=== PATIENT | male | born 1995 | race Hispanic/Latino ===

== ENCOUNTER 2022-08-28 12:53 | Emergency (ER) | payer OTHER ==
[2022-08-28] MEDS ORDERED: 0.9%NACL 1000ML 1,000 ML IV ONE ×2 (13:30→14:30)
[2022-08-28] MEDS ORDERED: ONDANSETRON 4MG INJ IVP ONE (13:30)
[2022-08-28] MEDS ORDERED: MORPHINE 4 MG SYG IVP ONE (13:30)
[2022-08-28 13:40] LABS: BASOPHILS % (AUTO) 0.2 % (0.0-5.0); HEMATOCRIT 46.3 % (42-54); LYMPHOCYTES % (AUTO) 5.9 % (21.0-51.0); MEAN CORPUSCULAR HEMOGLOBIN 32.5 pg (27.0-33.0); MONOCYTES % (AUTO) 4.7 % (3.0-13.0); NEUTROPHILS % (AUTO) 88.5 % (40.0-77.0); PLATELET COUNT (AUTO) 218 K/uL (130-400); RED BLOOD CELL COUNT(AUTO) 4.98 MIL/uL (4.50-6.20); RED CELL DISTRIBUTION WIDTH 11.4 % (11.0-15.5); WHITE BLOOD COUNT (AUTO) 17.4 K/uL (4.8-10.8)
[2022-08-28 13:44] LABS: APPEARANCE,URINE CLEAR (CLEAR); BILIRUBIN,URINE NEGATIVE (NEGATIVE); COLOR,URINE YELLOW (YELLOW); GLUCOSE, URINE (UA) NEGATIVE (NEGATIVE); KETONES,URINE >=80 mg/dL (NEGATIVE); LEUKOCYTE ESTERASE ,URINE NEGATIVE Leu/uL (NEGATIVE); NITRATE,URINE NEGATIVE (NEGATIVE); OCCULT BLOOD,URINE NEGATIVE (NEGATIVE); PROTEIN,URINE 50 mg/dL (NEGATIVE); UROBILINOGEN,URINE 0.2 mg/dL (0.2-1.0)
[2022-08-28 13:56] LABS: CREATINE KINASE, TOTAL 75 U/L (21-232)
[2022-08-28 13:57] LABS: LIPASE < 50 U/L (114-286)
[2022-08-28 14:01] LABS: ALANINE AMINOTRANSFERASE 81 U/L (12-78); ASPARTATE AMINOTRANSFERASE 30 U/L (10-37); CARBON DIOXIDE 29 mmol/L (21-32); CHLORIDE 98 mmol/L (101-111); CREATININE 0.9 mg/dL (0.5-1.5); GLOMERULAR FILTR. RATE CALC 121 mL/min (>90); GLUCOSE,RANDOM 99 mg/dL (70-105); SODIUM SERUM 134 mmol/L (136-145); TOTAL PROTEIN, SERUM 7.8 g/dL (6.0-8.3); UREA NITROGEN, BLOOD 12 mg/dL (7-18)
[2022-08-28 14:03] LABS: LIPASE < 50 U/L (114-286); POTASSIUM 2.9 mmol/L (3.5-5.1)
[2022-08-28 14:09] LABS: BACTERIA,URINE FEW /HPF (None Seen); MUCUS,URINE MOD LPF (None Seen); SQUAMOUS EPITHELIAL CELL,UR RARE /HPF (0-2); WBC,URINE 0-1 /HPF (0-1)
[2022-08-28] MEDS ORDERED: POTASSIUM CHLORIDE 20 MEQ/100 ML BAG IV ONE (14:30)
[2022-08-28] MEDS ORDERED: POTASSIUM BICARB/CIT AC 25 MEQ TABLET.EFF PO ONE (16:30)
[2022-08-28] MEDS ORDERED: ONDA4TAB10 PO (17:04)
[2022-08-28] MEDS ORDERED: DIPH1TAB PO (17:04)
[2022-08-28 17:40] VITALS: BP 136/78
== END 2022-08-28 17:41 | disposition home or self-care (01) ==
LOC: EDH 12:53
DX: K52.9 Noninfective gastroenteritis and colitis, unspecified (principal); E87.6 Hypokalemia; E86.0 Dehydration; R11.2 Nausea with vomiting, unspecified; Z20.822 Contact with and (suspected) exposure to COVID-19
CPT/HCPCS: 99284; 96365; 96366; 96375; 87635; 96361; 82550; 80053; 83690 ×2; 85025; 81001; 36415; C9803; J2405; J2270; J3480

== ENCOUNTER 2024-04-11 13:12 | Emergency (ER) | payer SELFPAY ==
[~2024-04-11] VITALS: Ht 165.1 cm; Wt 68.0 kg
[~2024-04-11 13:12] MED LIST: DIPH1TAB PO; ONDA-243 PO
[2024-04-11 13:56] VITALS: BP 126/62; PULSE 63; RESP 20; TEMP 98.5
[2024-04-11] MEDS ORDERED: AMOX1TAB16 PO (13:59)
--- NOTE | 2024-04-11 14:00 | ERN ---
General Chief Complaint: Insect Bite Stated Complaint: SPIDER BITE ON NECK Time Seen by MD: 13:13 History of Present Illness Initial Comments 28-year-old male presents for a draining abscess to the back in his right neck. He reports been present for a couple of weeks. It was enlarging inside and it finally opened up. There is some purulent drainage. No systemic signs or symptoms. No medical conditions. Allergies: Coded Allergies: No Known Drug Allergies (Unverified Allergy, Unknown, 08/28/22) Home Meds Active Scripts Diphenoxylate HCl/Atropine (Lomotil Tablet) 1 Each Tablet, 2 TAB PO Q12H PRN for DIARRHEA for 5 Days, #10 TAB 0 Refills Prov:SEB MCCALL MD 08/28/22 Ondansetron (Ondansetron Odt) 4 Mg Tab.rapdis, 4 MG PO TID PRN for NAUSEA, #30 TAB 0 Refills Prov:SEB MCCALL MD 08/28/22 ROS Dictation CONSTITUTIONAL: No chills, no fever, no weakness, no diaphoresis, no malaise. HEAD/FACE: No signs of trauma. EENT: No eye pain, no blurred vision, no tearing, no double vision, no ear pain, no ear discharge, no nose pain, no nasal congestion, no throat pain, no throat swelling, no mouth pain. RESPIRATORY: No cough, no orthopnea, no SOB, no stridor, no wheezing. CARDIOVASCULAR: No chest pain, no edema, no palpitations, no syncope. GASTROINTESTINAL/ABDOMINAL: No abdominal pain, no constipation, no diarrhea, no nausea, no vomiting. GENITOURINARY: No abnormal discharge, no dysuria, no frequent urination, no hematuria. No complaints of pain in the genitals. MUSCULOSKELETAL: No back pain, no gout, no joint pain, no joint swelling, no muscle pain, no muscle stiffness, no neck pain. INTEGUMENTARY: No change in color, no change in hair/nails, no dryness, no lesion, no lumps, no rash. NEUROLOGICAL/PSYCH: No anxiety, not depressed, no emotional problem, no headache, no numbness, no pre-existing deficit, no history of seizures, no tremors, no weakness. HEMATOLOGIC/LYMPHATIC: Not anemic, no history of blood clots, no apparent bleeding, no bruising, glands not swollen. All Systems Negative, Except as Noted. Physical Exam Physical Exam Dictation VITAL SIGNS: Reviewed. GENERAL APPEARANCE: Alert, oriented x3, no acute distress HEAD AND FACE: Non-traumatic. EYES: PERRL, pink conjunctivas, eyelid no trauma, anterior chamber clear. EARS: Pinnas intact and no signs of trauma or erythema. Ear canals clear and no discharge. TMs no erythema. NOSE: No discharge, no bleeding. OROPHARYNX: Mouth normal, teeth no caries, tongue pink. Pharynx clear, no erythema. Tonsils no exudates, no abscesses noted. Mucous membrane moist. NECK: Supple, non-tender, no thyromegaly, no masses, no JVD, no bruits. BREAST: Deferred. CHEST: No tenderness, no crepitus, no paradoxical movement, no retractions. LUNGS: Clear, well-ventilated, symmetric, no rales, no wheezing, no rhonchi, no stridor, good breath sounds bilaterally. HEART: Regular rate, regular rhythm, no murmur, no gallops. VASCULAR: No peripheral edema. ABDOMEN: Soft, positive bowel sounds, nondistended, no guarding, nontender, no rebound, no masses no hepatomegaly, no splenomegaly, no Ovalles's sign, no hernias. RECTAL: Deferred. GENITAL: Deferred. NEUROLOGICAL: Normal speech, gross motor function intact, gross sensory function intact. MUSCULOSKELETAL: Neck nontender, full range of motion, back nontender, full range of motion. EXTREMITIES: Nontender, full range of motion. SKIN: Color pink, dry, no turgor, no rash, no lacerations, no abrasions, no contusions. LYMPHATICS: Deferred. MDM CC: Right neck abscess Historian: Patient Comorbidities: None Limitations by social determinants of health: Uninsured. Vitals are stable No labs or imaging indicated He was a small abscess on the back of his neck, proximally 1 cm in diameter. It does appear to be draining. There is no systemic signs or symptoms There is no abscess that needs draining in his time. He was not meet SIRS or sepsis criteria. He is nontoxic in appearance. We will DC with antibiotics recommend primary care follow up. DX & DISP Disposition: Discharge Departure Impression: Primary Impression: Neck abscess Condition: Stable Assign Patient to: You have an abscess on the back of your neck. It appears to be draining. As we discussed, apply frequent warm compresses. I have prescribed Augmentin, which is an antibiotic. Please take this twice per day. Keep the wound clean with soap and water. Then keep it covered with a Band-Aid. Please follow up with the primary doctor next week for re-evaluation. Scripts Amoxicillin/Potassium Clav (Amox Tr-K Clv 875-125 mg Tab) 875 Mg-125 Mg Tablet 1 TAB PO BID for 10 Days, #20 TAB 0 Refills Prov: MICHELLE ALEGRIA DO 04/11/24 Referrals: NONE (PCP) MICHELLE ALEGRIA DO Apr 11, 2024 14:00
== END 2024-04-11 14:25 | disposition home or self-care (01) ==
LOC: EDH 13:12
DX: L02.11 Cutaneous abscess of neck (principal); Z79.899 Other long term (current) drug therapy
CPT/HCPCS: 99283; 99285

== ENCOUNTER 2024-12-27 18:39 | Emergency (ER) | payer OTHER ==
[~2024-12-27] VITALS: Ht 165.1 cm; Wt 81.6 kg
[~2024-12-27 18:39] MED LIST changes: +AMOX1TAB16 PO
--- NOTE | 2024-12-27 18:56 | ERN ---
ED Note History of Present Illness Stated Complaint: FEVER Chief Complaint: Fever Time Seen by MD: 18:40 Time Seen by Midlevel: 18:45 Dictation: Justen rodriguez is a 29-year-old male with no reported chronic health issues who presented to the emergency department this evening for evaluation of fever. He reports one week of fever, fatigue, general body weakness, and sore throat. He states today he felt febrile prompting him to come to the hospital. He denies shortness of breath, cough, chest pain, palpitations, edema, abdominal pain, nausea, vomiting, hematemesis, constipation, diarrhea, melena, hematochezia, dysuria, dizziness, or focal weakness/paresthesia. He states he has been taking Tylenol; last dose yesterday evening. Allergies: Coded Allergies: No Known Drug Allergies (Unverified Allergy, Unknown, 08/28/22) Home Meds Active Scripts Amoxicillin/Potassium Clav (Amox Tr-K Clv 875-125 mg Tab) 875 Mg-125 Mg Tablet, 1 TAB PO BID for 10 Days, #20 TAB 0 Refills Prov:MICHELLE ALEGRIA DO 04/11/24 Diphenoxylate HCl/Atropine (Lomotil Tablet) 1 Each Tablet, 2 TAB PO Q12H PRN for DIARRHEA for 5 Days, #10 TAB 0 Refills Prov:SEB MCCALL MD 08/28/22 Ondansetron (Ondansetron Odt) 4 Mg Tab.rapdis, 4 MG PO TID PRN for NAUSEA, #30 TAB 0 Refills Prov:SEB MCCALL MD 08/28/22 Past Medical History Past Medical History: No Pertinent History Surgical History: None PSYCH History: no pertinent psych hx Social History: Negative, Lives with family RN Note Reviewed/Agreed w/PFSH: Yes Review of System Dictation REVIEW OF SYSTEMS: CONSTITUTIONAL: Patient sweats or weight changes. Reports fever, chills, fatigue, and body aches. EYES: Patient denies any visual symptoms. EARS, NOSE, AND THROAT: No difficulties with hearing. No symptoms of rhinitis. Reports sore throat. CARDIOVASCULAR: Patient denies chest pains, palpitations, orthopnea and paroxysmal nocturnal dyspnea. RESPIRATORY: No dyspnea on exertion, no wheezing or cough. GI: No nausea, vomiting, diarrhea, constipation, abdominal pain, hematochezia or melena. : No urinary hesitancy or dribbling. No nocturia or urinary frequency. No abnormal urethral discharge. MUSCULOSKELETAL: Reports body aches. NEUROLOGIC: No chronic headaches, no seizures. Patient denies numbness, tingling or weakness. PSYCHIATRIC: Patient denies problems with mood disturbance. No problems with anxiety. ENDOCRINE: No excessive urination or excessive thirst. DERMATOLOGIC: Patient denies any rashes or skin changes. Initial Vital Sign VS Vital Signs Date Time Temp Pulse Resp B/P (MAP) Pulse Ox O2 Delivery O2 Flow Rate FiO2 12/27/24 18:40 101.3 89 16 122/54 98 Room Air 12/27/24 19:15 0 21 Physical Exam Dictation Vital signs: Reviewed. Fever 101.1 Constitutional: No acute distress. Non-toxic appearing. Pleasant/calm Head/Face: Normocephalic, atraumatic. Eyes: Periorbital areas with no swelling, redness, or edema. Lids and lashes are normal. Conjunctival injection is absent. Sclera anicteric. Pupils equal, round, reactive to light. ENT: Pinnas intact and no signs of trauma or erythema. Ear canals clear and no discharge. TMs no erythema. No nasal discharge or bleeding noted. Oropharynx with bright erythema; no exudates, swelling, masses, exudates, or evidence of obstruction. Uvula midline. Mucous membranes moist. Neck: Trachea midline, no masses palpated, and no cervical lymphadenopathy. No swelling. Supple, full range of motion. Chest/Axilla: No tenderness, no crepitus, no paradoxical movement, no retractions. Cardiovascular: Regular rate, regular rhythm, no murmur, no gallops. Symmetric pulses. No peripheral edema. Normotensive Respiratory: Respirations even and unlabored. Lung sounds clear; no wheezes, rales or rhonchi. Room air SpO2 98% Gastrointestinal: Inspection is normal. No distention is appreciated. Bowel sounds are normal. No mass or organomegaly . There is no tenderness. No rebound. No rigidity. No voluntary or involuntary guarding. No Ovalles's sign. Neurological: Normal speech, gross motor function intact, gross sensory function intact. No focal weakness/Paresthesia. Musculoskeletal/Extremities: All extremities have full range of motion, no pain or tenderness on palpation. Symmetric pulses. Integumentary: Intact. Skin is normal color, warm and dry. Cap refill less than 2 seconds. Results (Laboratory/Radiology) Laboratory/Radiology Laboratory Tests Test 12/27/24 18:43 Influenza Type A Antigen Negative For Type A Influenza Type B Antigen Negative For Type B SARS-CoV-2 Antigen (Rapid) PRESUMPTIVE NEGATIVE Group A Streptococcus Rapid negative (NEGATIVE) Labs Reviewed?: Yes ED Course ED Course Orders Procedure Category Date Status Time Covid19 (Sars Antigen LAB 12/27/24 Complete Rapid) 18:42 Influenza Type A & B, LAB 12/27/24 Complete Rapid 18:42 Rapid (Group A Strep) LAB 12/27/24 Complete 18:42 Acetaminophen 500mg PHA 12/27/24 In Process Tab (Tylenol 500mg T 19:00 Current Medications Medications (Trade) Dose Ordered Sig/Yoshi Route PRN Reason Start Time Stop Time Status Last Admin Dose Admin Acetaminophen (TYLenol 500MG TAB) 1,000 mg ONCE PO 12/27/24 19:00 12/27/24 23:30 12/27/24 19:14 Vital Signs Date Time Temp Pulse Resp B/P (MAP) Pulse Ox O2 Delivery O2 Flow Rate FiO2 12/27/24 19:15 100.6 97 20 121/72 99 Room Air* 0 21 12/27/24 19:14 100.6 12/27/24 18:40 101.3 89 16 122/54 98 Room Air Uneventful ED course. Upon arrival temperature 101.3; no tachycardia. Throat with bright erythema; no exudates. Able to take fluids well. Dose Tylenol 1000 mg was administered; temp decreased. Influenza A/B, COVID and strep all negative. Findings were discussed with patient and all questions were answered. Medical Decision Making MDM MDM: Differential diagnosis: Influenza, strep, COVID Rationale: Tests considered and ordered secondary to shared decision making include: Lab Previous outside records reviewed: Old ER visits. Risk of complication and/or morbidity or mortality of patient management: None Medications-Per medication reconciliation Need for hospitalization: Patient does not meet criteria for hospitalization. Need for emergency major/minor surgery: No There are no social concerns with this patient. Prescription drug management: Ibuprofen, OTC Tylenol Prescriptions will include symptomatic care Patient's prior external medical records from other ER visits were reviewed by me as indicated. Prior testing and results from previous visits were reviewed. Prior tests were taken into account with medical decision making and resource utilization, independent historian/historians were used to obtain complete medical history. I independently interpreted the test that were performed, results were reviewed by me and considered findings on radiology if ordered. Medical management and examination interpretation discussions were had by me with other qualified healthcare professionals as indicated for the patient's care. DX & DISP Disposition: Discharge Departure Impression: Primary Impression: Viral illness Additional Impression: Fever Condition: Stable Additional Instructions: Symptoms are most likely due to a viral infection that is not influenza, COVID, or strep. Viral illness is often cause of fever sore throat cough congestion body aches fatigue, and stomach upset. Antibiotics do not help with viral infections. Rest/get plenty of sleep and take it easy while your body recovers. Increase fluid intake; drink water, tea, clear soups, or electrolyte drinks. Use Tylenol or ibuprofen as needed for fever and body aches. Eat light meals as tolerated. Because you work in the [employer] you should take time off work until your fever free times 24 hours without medicine and symptoms are improving. This helps prevent spreading of illness. Return to the ER or call your doctor if you develop trouble breathing or chest pain, high fever that does not improve with medicine, severe sore throat/inability to swallow fluids, persistent vomiting or dehydration (very little urine, dizziness, very dry mouth), or symptoms worsening after several days instead of improving. Follow up with your primary care physician in 5-7 days if you are not improving. Referrals: SELF,REFERRAL (PCP) Time of Disposition: 20:01 KIMBERLY BURGOS NP Dec 27, 2024 18:56
--- NOTE | 2024-12-27 19:10 | NUR ---
COVID, FLU AND STREP SWABS COLLECTED AND SENT
[2024-12-27 19:29] LABS: RAPID GROUP A STREP negative (NEGATIVE)
[2024-12-27 19:38] LABS: COVID19 (SARS ANTIGEN RAPID) PRESUMPTIVE NEGATIVE (NEGATIVE); INFLUENZA TYPE A Negative For Type A (NEGATIVE); INFLUENZA TYPE B Negative For Type B (NEGATIVE)
[2024-12-27 19:47] VITALS: TEMP 100.1
[2024-12-27 20:24] VITALS: BP 119/63; PULSE 78; RESP 12; TEMP 99.5; O2SAT 99
[2024-12-28] MEDS ORDERED: AZIT250T9 PO (09:41)
== END 2024-12-27 20:27 | disposition home or self-care (01) ==
LOC: EDH 18:39
DX: B34.9 Viral infection, unspecified (principal); Z20.822 Contact with and (suspected) exposure to COVID-19; Z79.899 Other long term (current) drug therapy
CPT/HCPCS: 87426; 87804; 87880; 99283

== ENCOUNTER 2024-12-28 07:16 | Emergency (ER) | payer OTHER ==
[~2024-12-28] VITALS: Ht 165.1 cm; Wt 81.6 kg
--- NOTE | 2024-12-28 08:10 | NUR ---
PATIENT BROUGHT BACK TO FAST TRACK AT THIS TIME AND HAS THICK JACKET PLACED ON SHOULDERS. INFORMED PATIENT TO REMOVE JACKET AT THIS TIME TO STOP THE FEVER FROM INCREASING AND PATIENT COMPLIED WITH INSTRUCTION BUT CONTINUES TO STATE "I'M COLD MA'AM." INFORMED PATIENT THAT THE FEVER NEEDS TO BE LOWERED PRIOR TO PLACING JACKET BACK ON, PATIENT AGREED WITH PLAN OF CARE./HAYLEY
[2024-12-28] MEDS: LIDOCAINE HCL 1% 20 ML VIAL ONE (08:56)
[2024-12-28] MEDS ORDERED: AZIT250T9 PO (09:41)
--- NOTE | 2024-12-28 09:41 | ERN ---
ED Note History of Present Illness Stated Complaint: FEVER AND HEADACHE Chief Complaint: Fever Time Seen by MD: 07:46 Dictation: 29-year-old male with fever cough cold congestion body aches and headache sick for the past few days was seen here yesterday given Tylenol but not improving. No chest pain or shortness of breath no abdominal pain Allergies: Coded Allergies: No Known Drug Allergies (Unverified Allergy, Unknown, 08/28/22) Home Meds Active Scripts Amoxicillin/Potassium Clav (Amox Tr-K Clv 875-125 mg Tab) 875 Mg-125 Mg Tablet, 1 TAB PO BID for 10 Days, #20 TAB 0 Refills Prov:MICHELLE ALEGRIA DO 04/11/24 Diphenoxylate HCl/Atropine (Lomotil Tablet) 1 Each Tablet, 2 TAB PO Q12H PRN for DIARRHEA for 5 Days, #10 TAB 0 Refills Prov:SEB MCCALL MD 08/28/22 Ondansetron (Ondansetron Odt) 4 Mg Tab.rapdis, 4 MG PO TID PRN for NAUSEA, #30 TAB 0 Refills Prov:ESB MCCALL MD 08/28/22 Past Medical History Past Medical History: No Pertinent History Surgical History: None Social History: Negative, Lives with family Review of System Dictation Constitutional: Per HPI Eyes: Negative for injury, pain,redness, and discharge ENT: Per HPI Cardiovascular: Negative for chest pain, palpitations, and edema Respiratory: Per HPI Abdomen/GI: Negative for abdominal pain, nausea, vomiting, diarrhea, and constipation Back: Negative for injury and pain : Negative for injury, bleeding and discharge MS/Extremity: Negative for injury and deformity Skin: Negative for rash, and discoloration Neuro: Negative for headache, weakness, numbness, tingling, and seizure Psych: Negative for suicide ideation, homicidal ideation, and hallucinations Initial Vital Sign VS Vital Signs Date Time Temp Pulse Resp B/P (MAP) Pulse Ox O2 Delivery O2 Flow Rate FiO2 12/28/24 07:23 102.4 72 19 117/59 99 Room Air 0 Physical Exam Dictation General: awake, alert, NAD Head/Face: Normocephalic, atraumatic Eyes: PERRL, EOMI, vision at baseline ENT: oral cavity clear, TMs clear, no signs of infection Neck: Trachea midline, supple, no nuchal rigidity Cardiovascular: RRR, normal S1/S2, No MRGs, no JVD Respiratory: CTAB, no respiratory distress, No rales or wheezes Abdomen: Soft, non-tender, non-distended, normal bowel sounds, no guarding or rebound. Skin: Warm, dry, normal turgor, no rash MS/Extremity: Pulses equal, no cyanosis, neurovascular intact, FROM Neuro: COAx4, GCS 15, strength 5/5, CN 2-12 intact, normal cerebellar exam, normal gait, Psych: Normal behavior, mood, and affect normal Results (Laboratory/Radiology) Labs Reviewed?: Yes ED Course ED Course Orders Procedure Category Date Status Time Covid19 (Sars Antigen LAB 12/28/24 Logged Rapid) 07:50 Rapid (Group A Strep) LAB 12/28/24 Logged 07:50 Acetaminophen 500mg PHA 12/28/24 Complete Tab (Tylenol 500mg T 09:00 Ceftriaxone 1g Vial PHA 12/28/24 Complete (Rocephine 1g Inj) 09:00 Ketorolac 60mg/2ml PHA 12/28/24 Complete (Toradol 60mg/2ml) 09:00 Lidocaine Hcl 1% 20ml PHA 12/28/24 Complete Vial (Lidocaine Hc 08:52 Current Medications Medications (Trade) Dose Ordered Sig/Yoshi Route PRN Reason Start Time Stop Time Status Last Admin Dose Admin Acetaminophen (TYLenol 500MG TAB) 1,000 mg ONCE ONCE PO 12/28/24 09:00 12/28/24 09:01 DC 12/28/24 08:54 Ceftriaxone Sodium (ROCEphine 1G INJ) 1 gm ONCE ONCE IM 12/28/24 09:00 12/28/24 09:01 DC 12/28/24 08:54 Ketorolac Tromethamine (toRADol 60MG/ 2ML) 30 mg ONCE ONCE IM 12/28/24 09:00 12/28/24 09:01 DC 12/28/24 08:55 Lidocaine HCl (Lidocaine HCl 1% 20ml Vial) 20 ml STK-MED ONCE .ROUTE 12/28/24 08:52 12/28/24 08:53 DC Vital Signs Date Time Temp Pulse Resp B/P (MAP) Pulse Ox O2 Delivery O2 Flow Rate FiO2 12/28/24 07:23 102.4 72 19 117/59 99 Room Air 0 Medical Decision Making MDM MDM: Differential diagnosis: Rationale: Tests considered and ordered secondary to shared decision making include: Previous outside records reviewed: Old ER visits. Risk of complication and/or morbidity or mortality of patient management: None Medications-Per medication reconciliation Need for hospitalization: Patient does not meet criteria for hospitalization. Need for emergency major/minor surgery: No There are no social concerns with this patient. Prescription drug management Prescriptions will include symptomatic care Patient's prior external medical records from other ER visits were reviewed by me as indicated. Prior testing and results from previous visits were reviewed. Prior tests were taken into account with medical decision making and resource utilization, independent historian/historians were used to obtain complete medical history. I independently interpreted the test that were performed, results were reviewed by me and considered findings on radiology if ordered. Medical management and examination interpretation discussions were had by me with other qualified healthcare professionals as indicated for the patient's care. 29-year-old with URI stable exam negative workup stable for discharge. DX & DISP Disposition: Discharge Departure Impression: Primary Impression: Acute URI Condition: Stable Scripts Azithromycin (Azithromycin) 250 Mg Tablet 250 MG PO AD for cough for 5 Days, #6 TAB Prov: WAYNE LOZOYA MD 12/28/24 Referrals: SELF,REFERRAL (PCP) WAYNE LOZOYA MD Dec 28, 2024 09:41
[2024-12-28 09:45] VITALS: BP 118/74; PULSE 73; RESP 19; TEMP 99.8; O2SAT 98
[2024-12-28 09:50] VITALS: TEMP 99.8
== END 2024-12-28 09:53 | disposition home or self-care (01) ==
LOC: EDH 07:16
DX: J06.9 Acute upper respiratory infection, unspecified (principal); Z79.899 Other long term (current) drug therapy
CPT/HCPCS: 99284; 96372 ×2; J1885; J0696

== ENCOUNTER 2024-12-31 07:08 | Emergency (ER) | payer OTHER ==
[~2024-12-31] VITALS: Ht 165.1 cm; Wt 76.7 kg
[~2024-12-31 07:08] MED LIST changes: +AZIT250T9 PO
--- NOTE | 2024-12-31 07:26 | ERN ---
General Chief Complaint: Fever Stated Complaint: FEVER Time Seen by MD: 07:12 Source: patient History of Present Illness Initial Comments Patient is a 29-year-old male coming in with the 3rd time this week. Per patient he has been having fever and chills for this whole week. He was diagnosed with a URI was given antibiotics on two separate occasions but states that he has taken him but has not getting any better. His main complaint is nasal congestion sore throat and body aches. Allergies: Coded Allergies: No Known Drug Allergies (Unverified Allergy, Unknown, 08/28/22) Home Meds Active Scripts Azithromycin (Azithromycin) 250 Mg Tablet, 250 MG PO AD for cough for 5 Days, #6 TAB Prov:WAYNE LOZOYA MD 12/28/24 Amoxicillin/Potassium Clav (Amox Tr-K Clv 875-125 mg Tab) 875 Mg-125 Mg Tablet, 1 TAB PO BID for 10 Days, #20 TAB 0 Refills Prov:MICHELLE ALEGRIA DO 04/11/24 Diphenoxylate HCl/Atropine (Lomotil Tablet) 1 Each Tablet, 2 TAB PO Q12H PRN for DIARRHEA for 5 Days, #10 TAB 0 Refills Prov:SEB MCCALL MD 08/28/22 Ondansetron (Ondansetron Odt) 4 Mg Tab.rapdis, 4 MG PO TID PRN for NAUSEA, #30 TAB 0 Refills Prov:SEB MCCALL MD 08/28/22 Past Medical History Past Medical History: No Pertinent History Past Surgical History: None Social History Social History: Negative, Lives with family ROS Dictation CONSTITUTIONAL: No chills, no fever, no weakness, no diaphoresis, no malaise. HEAD/FACE: No signs of trauma. EENT: No eye pain, no blurred vision, no tearing, no double vision, no ear pain, no ear discharge, no nose pain, no nasal congestion, throat pain, no throat swelling, no mouth pain. RESPIRATORY: No cough, no orthopnea, no SOB, no stridor, no wheezing. CARDIOVASCULAR: No chest pain, no edema, no palpitations, no syncope. GASTROINTESTINAL/ABDOMINAL: No abdominal pain, no constipation, no diarrhea, no nausea, no vomiting. GENITOURINARY: No abnormal discharge, no dysuria, no frequent urination, no hematuria. No complaints of pain in the genitals. MUSCULOSKELETAL: No back pain, no gout, no joint pain, no joint swelling, no muscle pain, no muscle stiffness, no neck pain. INTEGUMENTARY: No change in color, no change in hair/nails, no dryness, no lesion, no lumps, no rash. NEUROLOGICAL/PSYCH: No anxiety, not depressed, no emotional problem, no headache, no numbness, no pre-existing deficit, no history of seizures, no tremors, no weakness. HEMATOLOGIC/LYMPHATIC: Not anemic, no history of blood clots, no apparent bleeding, no bruising, glands not swollen. All Systems Negative, Except as Noted. Physical Exam Physical Exam Dictation VITAL SIGNS: Reviewed. GENERAL APPEARANCE: Alert, oriented x3, no acute distress, obese. HEAD AND FACE: Non-traumatic. EYES: PERRL, pink conjunctivas, eyelid no trauma, anterior chamber clear. EARS: Pinnas intact and no signs of trauma or erythema. Ear canals clear and no discharge. TMs no erythema. NOSE: No discharge, no bleeding. OROPHARYNX: Mouth normal, teeth no caries, tongue pink. Pharynx erythema. Tonsils exudates, no abscesses noted. Mucous membrane moist. NECK: Supple, non-tender, no thyromegaly, no masses, no JVD, no bruits. BREAST: Deferred. CHEST: No tenderness, no crepitus, no paradoxical movement, no retractions. LUNGS: Clear, well-ventilated, symmetric, no rales, no wheezing, no rhonchi, no stridor, good breath sounds bilaterally. HEART: Regular rate, regular rhythm, no murmur, no gallops. VASCULAR: No peripheral edema. ABDOMEN: Soft, positive bowel sounds, nondistended, no guarding, nontender, no rebound, no masses no hepatomegaly, no splenomegaly, no Ovalles's sign, no hernias. RECTAL: Deferred. GENITAL: Deferred. NEUROLOGICAL: Normal speech, gross motor function intact, gross sensory function intact. MUSCULOSKELETAL: Neck nontender, full range of motion, back nontender, full range of motion. EXTREMITIES: Nontender, full range of motion. SKIN: Color pink, dry, no turgor, no rash, no lacerations, no abrasions, no contusions. LYMPHATICS: Deferred. Results Laboratory and Microbiology Lab and Micro Result Laboratory Tests Test 12/31/24 07:54 White Blood Count 11.0 K/uL (4.8-10.8) H Red Blood Count 4.53 MIL/uL (4.50-6.20) Hemoglobin 14.4 g/dL (14.0-18.0) Hematocrit 42.0 % (42-54) Mean Corpuscular Volume 92.7 fL (79-99) Mean Corpuscular Hemoglobin 31.8 pg (27.0-33.0) Mean Corpuscular Hemoglobin Concent 34.3 g/dL (32.0-36.0) Red Cell Distribution Width 11.9 % (11.0-15.5) Platelet Count 221 K/uL (130-400) Mean Platelet Volume 10.8 fL (7.5-10.5) H Immature Granulocyte % (Auto) 0.3 % (0-1) Neutrophils (%) (Auto) 79.7 % (40.0-77.0) H Lymphocytes (%) (Auto) 10.5 % (21.0-51.0) L Monocytes (%) (Auto) 8.8 % (3.0-13.0) Eosinophils (%) (Auto) 0.2 % (0.0-8.0) Basophils (%) (Auto) 0.5 % (0.0-5.0) Neutrophils # (Auto) 8.8 K/uL (1.8-7.7) H Lymphocytes # (Auto) 1.2 K/uL (1.0-4.8) Monocytes # (Auto) 1.0 K/uL (0.1-1.0) Eosinophils # (Auto) 0.02 K/uL (0.00-0.70) Basophils # (Auto) 0.06 K/uL (0.00-0.20) Absolute Immature Granulocyte (auto 0.03 K/uL (0-1) Nucleated Red Blood Cells 0.0 % (0.0-0.19) Sodium Level 135 mmol/L (136-145) L Potassium Level 3.4 mmol/L (3.5-5.1) L Chloride Level 101 mmol/L (101-111) Carbon Dioxide Level 28 mmol/L (21-32) Blood Urea Nitrogen 7 mg/dL (7-18) Creatinine 0.8 mg/dL (0.5-1.3) Glomerular Filtration Rate Calc 123 mL/min (>90) Random Glucose 118 mg/dL (70-105) H Total Calcium 8.7 mg/dL (8.5-10.1) Group A Streptococcus Rapid negative (NEGATIVE) Labs Reviewed?: Yes MDM MDM: Differential diagnosis: Strep pharyngitis, COVID, URI, Rationale: Tests considered and ordered secondary to shared decision making include: Previous outside records reviewed: Old ER visits. Risk of complication and/or morbidity or mortality of patient management: None Medications-Per medication reconciliation Need for hospitalization: Patient does not meet criteria for hospitalization. Need for emergency major/minor surgery: No Patient is a 29-year-old male coming in complaining of URI symptoms. Patient states this is the 3rd visit this week. On physical exam oropharyngeal erythema consistent with strep pharyngitis. Patient will be discharged in stable condition with a diagnosis of strep pharyngitis antibiotics we provided I did advised him appropriate follow up with PCP in 1-2 days. ED Course Orders Procedure Category Date Status Time Cbc With Differential LAB 12/31/24 Complete 07:18 Basic Metabolic Panel LAB 12/31/24 Complete 07:18 Rapid (Group A Strep) LAB 12/31/24 Complete 07:18 0.9%Nacl 1000ml (Ns PHA 12/31/24 Complete 1000ml) 07:30 Acetaminophen 500mg PHA 12/31/24 Complete Tab (Tylenol 500mg T 07:30 Current Medications Medications (Trade) Dose Ordered Sig/Yoshi Route PRN Reason Start Time Stop Time Status Last Admin Dose Admin Acetaminophen (TYLenol 500MG TAB) 1,000 mg ONCE ONCE PO 12/31/24 07:30 12/31/24 07:31 DC 12/31/24 08:05 Sodium Chloride 1,000 ml @ 0 mls/hr ONCE ONCE IV 12/31/24 07:30 12/31/24 07:31 DC 12/31/24 08:08 Vital Signs Date Time Temp Pulse Resp B/P (MAP) Pulse Ox O2 Delivery O2 Flow Rate FiO2 12/31/24 08:05 101.8 12/31/24 07:09 102.9 93 18 119/59 96 Room Air 0 DX & DISP Disposition: Discharge Departure Impression: Primary Impression: Strep pharyngitis Condition: Stable Scripts Amoxicillin (Amoxicillin) 500 Mg Capsule 1 CAP PO TID for 10 Days, #30 CAP 0 Refills Prov: RADHIKA LARA MD 12/31/24 Additional Instructions: FOLLOW-UP WITH PRIMARY CARE PROVIDER IN 1 TO 2 DAYS. TAKE MEDICATIONS DIRECTED HERE IN THE EMERGENCY ROOM. OKAY TO CONTINUE HOME MEDICATIONS UNLESS OTHERWISE DISCUSSED DURING YOUR VISIT IN THE EMERGENCY ROOM TODAY. RETURN TO YOUR NEAREST EMERGENCY ROOM IF SYMPTOMS WORSEN OR IF THERE IS NO IMPROVEMENT. CALL 911 IF YOU NEED IMMEDIATE ASSISTANCE. TAKE TYLENOL [id number] NEEDED AND IF NO CONTRAINDICATIONS ARE PRESENT. INCREASE ORAL HYDRATION. A WOUND CULTURE OR URINE CULTURE WAS ORDERED HERE IN THE EMERGENCY ROOM DEPARTMENT PLEASE FOLLOW-UP WITH PRIMARY CARE PROVIDER AND ADVISE THEM TO GET REPORTS FROM OUR FACILITY. IF YOU HAD ANY IRASEMA WRAP/SPLINTS THAT WERE APPLIED HERE, PLEASE DO NOT REMOVE THEM UNTIL YOU SEE YOUR PRIMARY CARE OR SPECIALTY. Referrals: Referrals: SELF,REFERRAL (PCP) TRUPTI MEHTA MD Time of Disposition: 08:29 RADHIKA LARA MD Dec 31, 2024 07:26
[2024-12-31 08:05] VITALS: TEMP 101.8
[2024-12-31 08:05] LABS: IMMATURE GRANULOCYTE ABSOLUTE 0.03 K/uL (0-1); NUCLEATED RED BLOOD CELLS 0.0 % (0.0-0.19); PLATELET COUNT (AUTO) 221 K/uL (130-400); RED BLOOD CELL COUNT(AUTO) 4.53 MIL/uL (4.50-6.20); RED CELL DISTRIBUTION WIDTH 11.9 % (11.0-15.5); WHITE BLOOD COUNT (AUTO) 11.0 K/uL (4.8-10.8)
[2024-12-31] MEDS: 0.9%NACL 1000ML 1,000 ML IV ONE (08:08)
[2024-12-31 08:12] LABS: CREATININE 0.8 mg/dL (0.5-1.3); GLOMERULAR FILTR. RATE CALC 123.0 mL/min (>90); GLUCOSE,RANDOM 118.0 mg/dL (70-105); SODIUM SERUM 135.0 mmol/L (136-145); UREA NITROGEN, BLOOD 7.0 mg/dL (7-18)
[2024-12-31] MEDS ORDERED: AMOX500C2 PO (08:29)
[2024-12-31 09:12] VITALS: BP 126/75; PULSE 87; RESP 20; TEMP 99.9; O2SAT 98
== END 2024-12-31 09:13 | disposition home or self-care (01) ==
LOC: EDH 07:08
DX: J02.0 Streptococcal pharyngitis (principal); Z79.899 Other long term (current) drug therapy
CPT/HCPCS: 99283; 96360; 80048; 85025; 87880; 36415; J7030